=== PATIENT | female | born 1970 | race Caucasian/White ===

== ENCOUNTER 2017-08-15 14:33 | Outpatient (CLI) | payer OTHER ==
[~2017-08-15 14:33] MED LIST: PROTONIX40 MG; SINGULAIR10 MG; SYMBICORT 16010.2 GM; SYNTHROID100 MCG; TRAMADOL HCL-AP1 TAB PO; TUSSIONEX PENNKI5 ML PO; ZANTAC300 MG; ZYRTEC10 M3
== END 2017-08-15 14:36 | disposition home or self-care (01) ==
LOC: MAMO-SONO 14:33 → SONOGRAMA 14:33 → MAMO-SONO 14:36
DX: E04.1 Nontoxic single thyroid nodule (principal)

== ENCOUNTER 2018-01-01 09:54 | Outpatient (CLI) | payer OTHER | END 2018-01-01 10:05 | disposition home or self-care (01) | LOC: MAMO-SONO 09:54 | DX: Z12.31 Encounter for screening mammogram for malignant neoplasm of breast (principal); R92.0 Mammographic microcalcification found on diagnostic imaging of breast ==

== ENCOUNTER → 2018-05-03 | Emergency (ER) | payer OTHER ==
[~2018-05-03] VITALS: Ht 160 cm; Wt 80.7 kg
[~2018-05-03] MED LIST changes: +METOPROLOL ER-1 EACH; +ULTRACET PO
== END | disposition home or self-care (01) ==
LOC: ER 00:20
DX: M54.89 Other dorsalgia (principal)